=== PATIENT | male | born 1945 | race Caucasian/White ===

== ENCOUNTER 2016-10-08 16:22 | Emergency (ER) | payer MEDICARE ==
[~2016-10-08] VITALS: Ht 182.9 cm; Wt 85.0 kg
[~2016-10-08 16:22] MED LIST: ALBU6.7H INH; ASPI81 PO; B-1210005 PO; CARB0.5D16 OU; CARB25TA PO; CLON1TAB PO; COZA50TA PO; DONE5TAB14 PO; FLUO-1 PO; GLIP5 PO; HYDR-3533 PO; LOVA20TA PO; MAXZ25 PO; MOBI7.5T PO; ROBA500T PO; SINE10100 PO; [UNRECOGNIZED DRUG - OTHER]
[2016-10-08 16:53] VITALS: BP 133/65; PULSE 60; RESP 18; TEMP 98.4; O2SAT 97
[2016-10-08 17:04] VITALS: BP 123/59; PULSE 60; RESP 18; TEMP 98.4; O2SAT 98
[2016-10-08] MEDS ORDERED: SODIUM CHLORIDE 0.9% FLUSH 10 ML FLUSH IVF PRN (17:15)
--- NOTE | 2016-10-08 17:20 | PD ---
HPI Chief Complaint: Syncope/Near-Syncope Time Seen by Provider: 16:57 Travel History International Travel<30 days: No Contact w/Intl Traveler<30days: No Traveled to known affect area: No History of Present Illness HPI [place] became dizzy and lightheaded. He leaned against the counter to steady himself. No syncope. He did not have any palpitations or chest pain. His spell lasted approximately 10 minutes and resolved. No alleviating factors. Severity of symptoms is moderate. He has Parkinson's and some chronic gait difficulty but doesn't typically get lightheaded. PFSH Past Medical History Depression: Yes (MOOD SWINGS) High Cholesterol: Yes Diabetes: Yes Patient Takes Glucophage: No Diminished Hearing: No Hypertension: Yes Kidney Stones: Yes Parkinson's Disease: Yes Reproductive: Yes (SLEEP APNEA PATIENT USES B-PAP MACHINE AT NIGHT) Respiratory: Yes (SLEEP APNEA PATIENT USES B-PAP MACHINE AT NIGHT) Pneumonia: Yes Sleep Apnea: Yes Tetanus Vaccination: < 5 Years Influenza Vaccination: Yes ?: Not Past Surgical History Neurologic Surgery: Yes (DBS PLACED FOR PARKINSONS DISEASE ) Oral Surgery: Yes (NASAL POLYUPS REMOVED) Other Surgery: Yes (ARTHROSCOPIC SURGERY TO RIGHT KNEE) Social History Alcohol Use: No Tobacco Use: No Substance Use: No Allergies-Medications (Allergen,Severity, Reaction): Coded Allergies: Venlafaxine (Verified Adverse Reaction, Intermediate, slurred speech, ) Reported Meds & Prescriptions Reported Meds & Active Scripts Active Mobic (Meloxicam) 7.5 Mg Tab 7.5 Mg PO DAILY Lortab 5 mg/325 mg (Hydrocodone/Acetaminophen 5 mg/325 mg) 1 Tab 1 Tab PO Q6H PRN Robaxin (Methocarbamol) 500 Mg Tab 500 Mg PO Q8HR Reported Maxzide 37.5/25 Tab (Triamterene/HCTZ) 1 Tab Tab 1 Tab PO DAILY Prozac (Fluoxetine HCl) 10 Mg Cap 10 Mg PO DAILY Glipizide 5 Mg Tab 10 Mg PO BID Sinemet 25/250 (Carbidopa/Levodopa) Tab 1 Tab PO HS Donepezil 5 Mg Tab 10 Mg PO BID Sinemet 25/100 (Carbidopa/Levodopa) 25 Mg/100 Mg Tab 2 Tab PO BRKFST/DINNER Aspirin 81 Mg Tab 81 Mg PO DAILY Tears Naturale (Artificial Tears) 15 Ml Soln 1 Drop OU PRN Proventil Hfa (Albuterol Sulfate) 6.7 Gm Aero 90 Mcg INH UNKNOWN DOSE B-12 (Cyanocobalamin) 1,000 Cr Tab 1,000 Mg PO DAILY Clonazepam 1 Mg Tab 0.5 Mg PO HS Cozaar (Losartan Potassium) 50 Mg Tab 50 Mg PO DAILY Lovastatin 20 Mg Tab 20 Mg PO HS [Brain Stimulation] Review of Systems General / Constitutional: No: Fever Eyes: No: Visual changes HENT: Positive: Lightheadedness, No: Headaches Cardiovascular: No: Chest Pain or Discomfort Respiratory: No: Shortness of Breath Gastrointestinal: No: Abdominal Pain Genitourinary: No: Dysuria Musculoskeletal: No: Pain Skin: No Rash Neurologic: Positive: Dizziness, No: Weakness Psychiatric: No: Depression Endocrine: No: Polydipsia Hematologic/Lymphatic: No: Easy Bruising Physical Exam Narrative GENERAL: Well-nourished, well-developed patient in no apparent distress. SKIN: Warm and dry. HEAD: Atraumatic. Normocephalic. EYES: Pupils equal and round. No scleral icterus. No injection or drainage. ENT: No nasal bleeding or discharge. Mucous membranes pink and moist. NECK: Trachea midline. No JVD. CARDIOVASCULAR: Regular rate and rhythm. No murmur appreciated. RESPIRATORY: No accessory muscle use. Clear to auscultation. Breath sounds equal bilaterally. GASTROINTESTINAL: Abdomen soft, non-tender, nondistended. Hepatic and splenic margins not palpable. MUSCULOSKELETAL: No obvious deformities. No clubbing. No cyanosis. No edema. NEUROLOGICAL: Awake and alert. No obvious cranial nerve deficits. Motor grossly within normal limits. Normal speech. PSYCHIATRIC: Appropriate mood and affect; insight and judgment normal. Data Data Last Documented VS Vital Signs Date Time Temp Pulse Resp B/P Pulse Ox O2 Delivery O2 Flow Rate FiO2 10/08/16 17:33 98 Room Air 10/08/16 17:33 58 123/59 10/08/16 17:04 98.4 18 Orders Electrocardiogram (10/08/16 17:05) Basic Metabolic Panel (Bmp) (10/08/16 17:05) Complete Blood Count With Diff (10/08/16 17:05) Ecg Monitoring (10/08/16 17:05) Iv Access Insert/Monitor (10/08/16 17:05) Oximetry (10/08/16 17:05) Sodium Chloride 0.9% Flush (Ns Flush) (10/08/16 17:15) Orthostatic Vital Signs (10/08/16 17:05) Sodium Chlor 0.9% 1000 Ml Inj (Ns 1000 M (10/08/16 17:30) Labs Laboratory Tests Test 10/08/16 17:00 White Blood Count 5.8 TH/MM3 Red Blood Count 4.31 MIL/MM3 Hemoglobin 13.0 GM/DL Hematocrit 37.3 % Mean Corpuscular Volume 86.7 FL Mean Corpuscular Hemoglobin 30.1 PG Mean Corpuscular Hemoglobin 34.7 % Concent Red Cell Distribution Width 13.4 % Platelet Count 175 TH/MM3 Mean Platelet Volume 9.1 FL Neutrophils (%) (Auto) 69.7 % Lymphocytes (%) (Auto) 15.9 % Monocytes (%) (Auto) 11.4 % Eosinophils (%) (Auto) 2.5 % Basophils (%) (Auto) 0.5 % Neutrophils # (Auto) 4.1 TH/MM3 Lymphocytes # (Auto) 0.9 TH/MM3 Monocytes # (Auto) 0.7 TH/MM3 Eosinophils # (Auto) 0.1 TH/MM3 Basophils # (Auto) 0.0 TH/MM3 CBC Comment DIFF FINAL Differential Comment Sodium Level 137 MEQ/L Potassium Level 4.9 MEQ/L Chloride Level 106 MEQ/L Carbon Dioxide Level 26.3 MEQ/L Anion Gap 5 MEQ/L Blood Urea Nitrogen 32 MG/DL Creatinine 1.81 MG/DL Estimat Glomerular Filtration 37 ML/MIN Rate Random Glucose 202 MG/DL Calcium Level 8.8 MG/DL [facility] Medical Decision Making Medical Screen Exam Complete: Yes Emergency Medical Condition: Yes Medical Record Reviewed: Yes Differential Diagnosis Cardiac arrhythmia, vasovagal episode, orthostatic hypotension Narrative Course I have reviewed the patient's electronic medical record. IV placed I reviewed his EKG Extended cardiac monitoring reveals sinus rhythm at 60 without ectopy Patient's blood pressure is 1:30 systolic Standing his blood pressure is 125 systolic essentially the same He is not orthostatic Neurologically he is baseline CBC is normal Metabolic profile shows minor renal insufficiency On recheck he is doing well Stable for outpatient follow-up Diagnosis Primary Impression: Pre-syncope Additional Instructions: The patient was advised to follow up with their physician and return if they worsen. Med/Other Pt SpecificInfo: Other Disposition: 01 DISCHARGE HOME Condition: Stable Ochoa Gifford MD Oct 08, 2016 17:20
[2016-10-08] MEDS ORDERED: SODIUM CHLOR 0.9% 1000 ML INJ 1,000 ML IV ONE (17:30)
[2016-10-08 17:33] VITALS: BP 123/59; O2SAT 98
[2016-10-08 17:52] LABS: AUTOMATED NEUTROPHIL # 4.1 TH/MM3 (1.8-7.7); BASOPHIL % 0.5 % (0.0-2.0); EOSINOPHIL # 0.1 TH/MM3 (0-0.4); EOSINOPHIL % 2.5 % (0.0-4.0); HEMATOCRIT 37.3 % (39.0-51.0); HEMO FLAGS DIFF FINAL; LYMPH % 15.9 % (9.0-44.0); LYMPHOCYTE # 0.9 TH/MM3 (1.0-4.8); MEAN CELL VOLUME 86.7 FL (80.0-100.0); MEAN CORPUSCULAR HEMOGLOBIN 30.1 PG (27.0-34.0); MEAN CORPUSCULAR HGB CONC 34.7 % (32.0-36.0); MONO % 11.4 % (0.0-8.0); NEUT % 69.7 % (16.0-70.0); PLATELET COUNT 175 TH/MM3 (150-450); RED BLOOD COUNT 4.31 MIL/MM3 (4.50-5.90); RED CELL DISTRIBUTION WIDTH 13.4 % (11.6-17.2); WHITE BLOOD COUNT 5.8 TH/MM3 (4.0-11.0)
[2016-10-08 18:00] VITALS: BP 156/71; PULSE 62; RESP 18; O2SAT 98
[2016-10-08 18:11] LABS: BICARBONATE 26.3 MEQ/L (21.0-32.0); POTASSIUM 4.9 MEQ/L (3.5-5.1)
== END 2016-10-08 18:58 | disposition home or self-care (01) ==
LOC: NEPE 16:22
DX: R55 Syncope and collapse (principal)
CPT/HCPCS: 80048; 85025; 96360; 99284; J7030